=== PATIENT | female | born 1965 | race Caucasian/White ===

== ENCOUNTER → 2021-11-09 09:22 | Outpatient (RCR) | payer MEDICARE, MEDICAID, SELFPAY | END | disposition home or self-care (01) | LOC: HO.WCC 08-20 08:33 | PROVIDERS: PCP Internal Medicine; Visit Provider Surgery | DX: E11.622 Type 2 diabetes mellitus with other skin ulcer (principal); L98.412 Non-pressure chronic ulcer of buttock with fat layer exposed; E11.51 Type 2 diabetes mellitus with diabetic peripheral angiopathy without gangrene; E11.22 Type 2 diabetes mellitus with diabetic chronic kidney disease; I12.9 Hypertensive chronic kidney disease with stage 1 through stage 4 chronic kidney disease, or unspecified chronic kidney disease; N18.9 Chronic kidney disease, unspecified; I95.3 Hypotension of hemodialysis; D63.1 Anemia in chronic kidney disease; E83.59 Other disorders of calcium metabolism; I25.10 Atherosclerotic heart disease of native coronary artery without angina pectoris; Z99.2 Dependence on renal dialysis; Z89.512 Acquired absence of left leg below knee | CPT/HCPCS: 11042; 11045; 15271; 15275; 97602; 97605; 97606; 97607; 99203; 99212; 99213; Q4187 ==